=== PATIENT | male | born 1975 | race Caucasian/White ===

== ENCOUNTER 2021-12-19 07:51 | Day surgery (SDC) | payer OTHER ==
[~2021-12-19 07:51] MED LIST: Acetaminophen 325 MG Tab PO SCH; Lactated Ringers 1,000 ML IV SCH; Lidocaine 1%/Sod Bicarbonate in NS 8.4% 1 ML Syringe IDERM PRN; Pregabalin 25 MG Cap PO SCH; Sodium Chloride 0.9% 10 ML Syringe FLUSH PRN; Sodium Chloride 0.9% 10 ML Syringe FLUSH SCH; oxyCODONE ER 10 MG TAB.ER PO SCH
[2021-12-19] MEDS ORDERED: Albuterol 0.083% 2.5 MG/3 ML Neb Soln NEB STA (09:31)
[2021-12-19] MEDS ORDERED: fentaNYL 100 MCG/2 ML SDV ONE (09:39)
[2021-12-19] MEDS ORDERED: Propofol 200 MG/20 ML SDV ONE ×2 (09:40→11:46)
[2021-12-19] MEDS ORDERED: Midazolam 1 MG/ML 2 ML SDV ONE ×2 (09:40→12:04)
[2021-12-19] MEDS ORDERED: ceFAZolin 1 GM Vial ONE ×2 (09:40→10:07)
[2021-12-19] MEDS ORDERED: Ondansetron 4 MG/2 ML SDV IVPUSH PRN (11:38)
[2021-12-19] MEDS ORDERED: HYDROmorphone 0.5 MG/0.5 ML Syringe IVPUSH PRN (11:38)
[2021-12-19] MEDS ORDERED: fentaNYL 100 MCG/2 ML SDV IVPUSH PRN (11:38)
[2021-12-19] MEDS: Vancomycin 1 GM SDV ONE ×2 (11:43→12:08)
[2021-12-19] MEDS: Morphine 8 MG, EPINEPHrine 0.3 MG, Cefuroxime 750 MG, Ketorolac 30 MG, Sodium Chloride ... PRN ×10 (11:43→12:07)
[2021-12-19] MEDS ORDERED: Lactated Ringers 1,000 ML ONE ×2 (12:03)
[2021-12-19] MEDS ORDERED: Ketorolac 30 MG/ML SDV ONE (12:40)
[2021-12-19] MEDS ORDERED: traMADol 50 MG Tab PO PRN (13:06)
[2021-12-19 16:44] VITALS: BP 119/82; PULSE 70
== END 2021-12-19 16:05 | disposition home or self-care (01) ==
LOC: JD.SDS 07:51
PROVIDERS: ATTEND Orthopaedic Surgery
DX: M16.11 Unilateral primary osteoarthritis, right hip (principal); I10 Essential (primary) hypertension; F17.210 Nicotine dependence, cigarettes, uncomplicated; H54.7 Unspecified visual loss; Z79.899 Other long term (current) drug therapy
CPT/HCPCS: 0055T; 27130; 36415; 73501; 86850; 86900; 86901; 97110; 97116; 97161; A9270; C1713; C1776; J0171; J0690; J0697; J1885; J2250; J2270; J2704; J3010; J3370; J7120; 01214